=== PATIENT | female | born 1990 | race American Indian/Alaskan Native ===

== ENCOUNTER 2021-02-18 17:52 | Emergency (ER) | payer SELFPAY ==
[2021-02-18 20:37] VITALS: BP 114/79
--- NOTE | 2021-02-18 21:08 | Emergency Department Report ---
ED Medical Clearance HPI - General Chief complaint: Medical Clearance Stated complaint: NEEDS MEDICAL CLEARENCE/[facility] Time Seen by Provider: 02/18/21 20:46 Source: patient Mode of arrival: Ambulatory Limitations: No Limitations - History of Present Illness Initial comments: Patient 30-year-old -Italian female who presents requesting medical clearance for [facility], states the other choice is marijuana last used patient denies symptoms of withdrawal. There is no nausea or chills. Patient denies chest pain or shortness of breath. Last menstrual cycle was 2 weeks ago. Patient denies other complaints, patient appears well well-hydrated well- nourished and with appropriate mentation. MD Complaint: medical clearance request Allergies/Adverse reactions: Allergies Allergy/AdvReac Type Severity Reaction Status Date / Time No Known Allergies Allergy Verified 02/18/21 20:31 ED Review of Systems ROS: Stated complaint: NEEDS MEDICAL CLEARENCE/[facility] Other details as noted in HPI Constitutional: denies: chills, fever Eyes: denies: eye pain, eye discharge, vision change ENT: denies: ear pain, throat pain Respiratory: denies: cough, shortness of breath, wheezing Cardiovascular: denies: chest pain, palpitations Endocrine: no symptoms reported Gastrointestinal: as per HPI Genitourinary: denies: urgency, dysuria, discharge Musculoskeletal: denies: back pain, joint swelling, arthralgia Skin: denies: rash, lesions Neurological: denies: headache, weakness, paresthesias Psychiatric: denies: anxiety, depression, homicidal thoughts, suicidal thoughts Hematological/Lymphatic: denies: easy bleeding, easy bruising ED Past Medical Hx - Past Medical History Previous Medical History?: No ED Physical Exam - General Limitations: No Limitations General appearance: alert, in no apparent distress - Head Head exam: Present: atraumatic, normocephalic - Eye Eye exam: Present: normal appearance, EOMI Pupils: Present: normal accommodation - ENT ENT exam: Present: mucous membranes moist - Neck Neck exam: Present: normal inspection - Respiratory Respiratory exam: Present: normal lung sounds bilaterally. Absent: respiratory distress, wheezes, stridor - Cardiovascular Cardiovascular Exam: Present: regular rate, normal heart sounds - GI/Abdominal GI/Abdominal exam: Present: soft, normal bowel sounds. Absent: distended, tenderness, guarding, rebound, rigid, bruit, hernia - Rectal Rectal exam: Present: deferred - Extremities Exam Extremities exam: Present: normal inspection, full ROM, normal capillary refill. Absent: tenderness - Back Exam Back exam: Present: normal inspection, full ROM. Absent: CVA tenderness (R), CVA tenderness (L) - Neurological Exam Neurological exam: Present: alert, oriented X3, CN II-XII intact, normal gait, reflexes normal. Absent: motor sensory deficit - Expanded Neurological Exam Expanded Patient oriented to: Present: person, place, time Speech: Present: fluid speech Cranial nerves: EOM's Intact: Normal, Gag Reflex: Normal, Tongue Deviation: Normal, Nystagmus: Normal Motor strength exam: RUE: 5, LUE: 5, RLE: 5, LLE: 5 Best Eye Response ([place]): (4) open spontaneously Best Motor Response ([place]): (6) obeys commands Best Verbal Response ([place]): (5) oriented [place] Total: 15 - Psychiatric Psychiatric exam: Present: normal affect, normal mood. Absent: agitated, anxious, homicidal ideation, suicidal ideation - Skin Skin exam: Present: warm, dry, intact, normal color. Absent: rash ED Course Vital Signs 02/18/21 02/18/21 20:35 20:36 Temperature 98.2 F Pulse Rate 63 Blood Pressure 114/79 O2 Sat by Pulse 100 Oximetry ED Medical Decision Making - Lab Data Result diagrams: 02/18/21 20:51 02/18/21 20:51 Labs 02/18/21 02/18/21 02/18/21 20:51 20:51 20:51 WBC 5.3 RBC 4.55 Hgb 14.3 Hct 42.6 MCV 94 MCH 31 MCHC 34 RDW 13.4 Plt Count 187 Lymph % (Auto) 38.6 H [place] % (Auto) 8.3 H Eos % (Auto) 1.3 Baso % (Auto) 0.9 Lymph # (Auto) 2.1 [place] # (Auto) 0.4 Eos # (Auto) 0.1 Baso # (Auto) 0.0 Seg Neutrophils % 50.9 Seg Neutrophils # 2.7 Sodium 138 Potassium 4.3 Chloride 102.2 Carbon Dioxide 27 Anion Gap 13 BUN 12 Creatinine 0.6 Estimated GFR > 60 BUN/Creatinine Ratio 20 Glucose 110 H Calcium 9.3 Urine Bilirubin Urine RBC (Auto) U Epithel Cells (Auto) Salicylates < 0.3 L Urine Methadone Screen Acetaminophen Ur Barbiturates Screen Ur Phencyclidine Scrn Ur Amphetamines Screen U Benzodiazepines Scrn Drugs of Abuse Note 02/18/21 02/18/21 02/18/21 20:51 Unknown Unknown WBC RBC Hgb Hct MCV MCH MCHC RDW Plt Count Lymph % (Auto) [place] % (Auto) Eos % (Auto) Baso % (Auto) Lymph # (Auto) [place] # (Auto) Eos # (Auto) Baso # (Auto) Seg Neutrophils % Seg Neutrophils # Sodium Potassium Chloride Carbon Dioxide Anion Gap BUN Creatinine Estimated GFR BUN/Creatinine Ratio Glucose Calcium Urine Bilirubin Neg Urine RBC (Auto) 6.0 U Epithel Cells (Auto) 2.0 Salicylates Urine Methadone Screen Negative Acetaminophen 5.0 L Ur Barbiturates Screen Negative Ur Phencyclidine Scrn Negative Ur Amphetamines Screen Negative U Benzodiazepines Scrn Negative Drugs of Abuse Note Disclamer - Medical Decision Making All labs are normal. Mentation is appropriate no SI or HI. Patient will be DC'd to self at this time with endorsement of medical clearance for admission to to [facility]. pt is currently a/o x 3 ambulatory with steady gait, no tremor , no symptoms of withdrawal. ED Disposition Clinical Impression: Medical clearance for psychiatric admission Disposition: HOME / SELF CARE / HOMELESS Is pt being admited?: No Does the pt Need Aspirin: No Condition: Stable Instructions: Health Maintenance, Female Additional Instructions: Follow-up with [facility] Return to emergency if symptoms return. Referrals: MAGALY HUERTA MD [Referring] - 3-5 Days Forms: Work/School Release Form(ED) Time of Disposition: 22:44
[2021-02-18 21:18] LABS: Basophils % (Auto) 0.9 % (0.0-1.8); Eosinophils # (Auto) 0.1 K/mm3 (0.0-0.4); Eosinophils % (Auto) 1.3 % (0.0-4.3); Hematocrit 42.6 % (30.3-42.9); Hemoglobin 14.3 gm/dl (10.1-14.3); Lymphocytes # (Auto) 2.1 K/mm3 (1.2-5.4); Lymphocytes % (Auto) 38.6 % (13.4-35.0); Mean Corpuscular HGB Conc 34 % (30-34); Mean Corpuscular Volume 94 fl (79-97); Monocytes # (Auto) 0.4 K/mm3 (0.0-0.8); Monocytes % (Auto) 8.3 % (0.0-7.3); Platelet Count 187 K/mm3 (140-440); Red Blood Count 4.55 M/mm3 (3.65-5.03); Red Cell Distribution Width 13.4 % (13.2-15.2)
[2021-02-18 21:29] LABS: BUN/Creatinine Ratio 20; Blood Urea Nitrogen 12 mg/dL (7-17); Calcium 9.3 mg/dL (8.4-10.2); Hemolysis Index 26
[2021-02-18 22:18] LABS: Amphetamine Screen,Urine Negative; Benzodiazepines Screen,Urine Negative; Methadone Screen,Urine Negative
[2021-02-18 22:30] LABS: Bilirubin,Urine NEG (Negative); Blood,Urine NEG (Negative); Color,Urine Amber (Yellow); Mucus,Urine 3+ /HPF
[2021-02-18 22:41] LABS: Cannabinoid Screen,Urine Positive; Cocaine Screen,Urine Positive; Opiate Screen,Urine Positive
[2021-02-18 22:42] LABS: HCG Qualitative,Urine Negative (Negative)
== END 2021-02-18 23:25 | disposition home or self-care (01) ==
LOC: ED 17:52
DX: Z13.30 Encounter for screening examination for mental health and behavioral disorders, unspecified (principal); Z79.899 Other long term (current) drug therapy
CPT/HCPCS: 36415; 80048; 80307; 80320; 81001; 81025; 85025; 99283; G0480